=== PATIENT | female | born 1985 | race Caucasian/White ===

== ENCOUNTER 2016-06-21 20:25 | Emergency (ER) | payer SELFPAY ==
[~2016-06-21] VITALS: Ht 160 cm; Wt 79.5 kg
[2016-06-21 20:42] VITALS: Ht 160 cm; Wt 79.5 kg
== END 2016-06-21 22:58 | disposition left against medical advice (07) ==
LOC: FTE 20:25
DX: Z53.21 Procedure and treatment not carried out due to patient leaving prior to being seen by health care provider (principal)